=== PATIENT | male | born 1955 | race Caucasian/White ===

== ENCOUNTER 2016-10-20 17:29 | Emergency (ER) | payer OTHER ==
[~2016-10-20] VITALS: Ht 177.8 cm; Wt 94.1 kg
[~2016-10-20 17:29] MED LIST: AMIT25TA PO; AXIRON; LEVO50TA PO; QUET25TA5 PO; TEST30SO PO; [UNRECOGNIZED DRUG - OTHER]; [UNRECOGNIZED DRUG - OTHER]
[2016-10-20] MEDS ORDERED: MAALOX/HYOSCYAMINE/LIDOCAINE 45 ML BOTTLE PO ONE (18:00)
[2016-10-20] MEDS ORDERED: ONDANSETRON ODT 4 MG PO ONE (18:00)
[2016-10-20] MEDS ORDERED: ONDANSETRON ODT 4 MG ONE (18:15)
[2016-10-20] MEDS ORDERED: MAALOX/HYOSCYAMINE/LIDOCAINE 45 ML BOTTLE ONE (18:15)
[2016-10-20 18:17] LABS: HEMOGLOBIN 16.3 g/dL (13.7-18.0)
[2016-10-20 18:21] LABS: ASPARTATE AMINO TRANSFERASE 16 U/L (15-37); BLOOD UREA NITROGEN 13 mg/dL (7-18)
[2016-10-20 18:27] LABS: IS PT STATUS REG ER OR PRE ER? YES
[2016-10-20] MEDS ORDERED: SODIUM CHLORIDE FLUSH 10ML SYR IVF ONE (18:30)
[2016-10-20] MEDS ORDERED: SODIUM CHLORIDE 0.9% 1,000ML IVBOLUS ONE (18:30)
[2016-10-20] MEDS ORDERED: PROMETHAZINE 25 MG/ML, 1ML IM ONE (18:30)
[2016-10-20] MEDS ORDERED: ONDANSETRON 2MG/ML, 2ML ONE (18:41)
[2016-10-20] MEDS ORDERED: ONDANSETRON 2MG/ML, 2ML IVPush ONE (19:00)
[2016-10-20] MEDS ORDERED: METOCLOPRAMIDE 5 MG/ML, 2ML IVPush ONE (19:00)
[2016-10-20] MEDS ORDERED: METOCLOPRAMIDE 5 MG/ML, 2ML ONE (19:04)
[2016-10-20] MEDS ORDERED: KETOROLAC 60 MG/2 ML IVPush ONE (19:30)
[2016-10-20] MEDS ORDERED: KETOROLAC 30 MG/1 ML ONE (19:37)
[2016-10-20 20:10] VITALS: BP 103/79
== END 2016-10-20 20:13 | disposition home or self-care (01) ==
LOC: ED 19:43
DX: K52.9 Noninfective gastroenteritis and colitis, unspecified (principal); E86.0 Dehydration; R51 Headache; K85.90 Acute pancreatitis without necrosis or infection, unspecified; E03.9 Hypothyroidism, unspecified
CPT/HCPCS: 36415; 74022; 80053; 83690; 84484; 85025; 93005; 96361; 96374; 96375; 99285; J1885; J2405; J2765; J7030; Q0162

== ENCOUNTER → 2020-01-22 | Outpatient (CLI) | payer OTHER ==
[~2020-01-22] MED LIST changes: +DOCU100T3 PO; +LACT1CAP37 PO; +MAGNESIUM PO; +METHYLCELLULOSE; +NALTREXONE; +VITAMIN B12 PO
== END | disposition home or self-care (01) ==
LOC: RAD 07:09
PROVIDERS: ATTEND Surgery
DX: R10.9 Unspecified abdominal pain (principal)
CPT/HCPCS: 74250

== ENCOUNTER → 2021-01-14 | Outpatient (CLI) | payer MEDICARE ==
[~2021-01-14] MED LIST changes: -LACT1CAP37 PO; +LACT1CAP47 PO
== END | disposition home or self-care (01) ==
LOC: CARD 11:00
PROVIDERS: ATTEND Internal Medicine Cardiovascular Disease
DX: R06.02 Shortness of breath (principal); R07.89 Other chest pain
CPT/HCPCS: 93017

== ENCOUNTER → 2021-02-12 | Outpatient (CLI) | payer MEDICARE | END | disposition home or self-care (01) | LOC: CFH 07:31 | PROVIDERS: ATTEND Internal Medicine Cardiovascular Disease | DX: I35.8 Other nonrheumatic aortic valve disorders (principal) | CPT/HCPCS: 93306; 93356 ==